=== PATIENT | male | born 1980 | race Caucasian/White ===

== ENCOUNTER 2018-03-29 10:56 | Emergency (ER) | payer MEDICAID ==
[~2018-03-29] VITALS: Ht 160 cm; Wt 124.7 kg
[2018-03-29] MEDS ORDERED: Amoxicillin500 MG PO (11:22)
== END 2018-03-29 11:30 | disposition home or self-care (01) ==
LOC: ER 10:56
DX: K08.89 Other specified disorders of teeth and supporting structures (principal); Z87.891 Personal history of nicotine dependence
CPT/HCPCS: 99283